=== PATIENT | female | born 1930 | race Caucasian/White ===

== ENCOUNTER → 2017-10-27 | Outpatient (CLI) | payer MEDICARE ==
[~2017-10-27] MED LIST: Statin PO
== END | disposition home or self-care (01) ==
LOC: STAR 12:51
PROVIDERS: ATTEND Orthopaedic Surgery
DX: Z01.818 Encounter for other preprocedural examination (principal); S82.852D Displaced trimalleolar fracture of left lower leg, subsequent encounter for closed fracture with routine healing; X58.XXXD Exposure to other specified factors, subsequent encounter
CPT/HCPCS: 93005

== ENCOUNTER 2017-10-31 07:41 | Day surgery (SDC) | payer MEDICARE ==
[~2017-10-31] VITALS: Ht 167.6 cm; Wt 69.0 kg
[2017-10-31] MEDS ORDERED: LACTATED RINGERS 1,000 ML IV SCH (08:04)
[2017-10-31] MEDS ORDERED: FENTANYL PF 100 MCG/2ML ONE (09:00)
[2017-10-31] MEDS ORDERED: BUPIVACAINE/PF 0.5% ONE (09:01)
[2017-10-31] MEDS ORDERED: EPINEPHRINE 1 MG/ML, 1ML ONE (09:01)
[2017-10-31] MEDS ORDERED: ONDANSETRON 2MG/ML, 2ML ONE (09:09)
[2017-10-31] MEDS ORDERED: CEFAZOLIN 1,000 MG ONE (09:09)
[2017-10-31] MEDS ORDERED: GLYCOPYRROLATE 0.2MG/1ML, 5ML ONE (09:09)
[2017-10-31] MEDS ORDERED: PROPOFOL 10 MG/ML, 20ML ONE (09:09)
[2017-10-31] MEDS ORDERED: DEXAMETHASONE 4 MG/ML, 1ML ONE (09:09)
[2017-10-31] MEDS ORDERED: OXYcodone 5 MG/5 ML ORAL.SOL UDC PO PRN (09:30)
[2017-10-31] MEDS ORDERED: FENTANYL PF 100 MCG/2ML IV PRN (09:30)
[2017-10-31] MEDS ORDERED: hydrALAzine 20 MG/ML, 1ML IV PRN (09:30)
[2017-10-31] MEDS ORDERED: ACETAMINOPHEN 325 MG TABLET PO PRN (09:30)
[2017-10-31] MEDS ORDERED: HYDROmorphone 1 MG/ML, 1ML IV PRN (09:30)
[2017-10-31] MEDS ORDERED: ONDANSETRON 2MG/ML, 2ML IV PRN (09:30)
[2017-10-31] MEDS ORDERED: LABETALOL 5MG/ML, 20ML IV PRN (09:30)
[2017-10-31] MEDS ORDERED: BUPIVACAINE/PF 0.5% INFIL ONE (09:42)
[2017-10-31] MEDS ORDERED: EPINEPHRINE 1 MG/ML, 1ML INFIL ONE (09:43)
[2017-10-31] MEDS ORDERED: ACETAMINOPHEN 650 MG/20.3 ML UDC ONE (10:23)
[2017-10-31] MEDS ORDERED: OXYcodone 5 MG/5 ML ORAL.SOL UDC ONE (10:24)
== END 2017-10-31 12:00 | disposition home or self-care (01) ==
LOC: OUT 07:41
PROVIDERS: ATTEND Orthopaedic Surgery
DX: E78.5 Hyperlipidemia, unspecified (principal); T85.79XA Infection and inflammatory reaction due to other internal prosthetic devices, implants and grafts, initial encounter; Y83.8 Other surgical procedures as the cause of abnormal reaction of the patient, or of later complication, without mention of misadventure at the time of the procedure; Y92.89 Other specified places as the place of occurrence of the external cause; Z98.890 Other specified postprocedural states
CPT/HCPCS: 20680; 73600; 76000; 87070; 87075; 87077; 87205; J0171; J0690; J1100; J2405; J2704; J3010; J3490; J7120

== ENCOUNTER → 2019-12-26 | Outpatient (CLI) | payer MEDICARE, OTHER | END | disposition home or self-care (01) | LOC: CFH 09:39 | PROVIDERS: ATTEND Family Medicine | DX: Z12.31 Encounter for screening mammogram for malignant neoplasm of breast (principal) | CPT/HCPCS: 77063; 77067 ==